=== PATIENT | female | born 1935 | race Caucasian/White ===

== ENCOUNTER 2017-04-15 23:54 | Emergency (ER) | payer OTHER ==
[~2017-04-15] VITALS: Ht 160 cm; Wt 78.0 kg
[2017-04-16 00:06] VITALS: TEMP 36.7; O2SAT 95; Ht 160 cm; Wt 78.0 kg
--- NOTE | 2017-04-16 00:51 | EMERGENCY ROOM VISIT NOTE ---
History Report prepared by Jackelyn: Hollie Llamas Under the Supervision of: Dr. Steve Hare M.D. First contact with patient: 00:41 Chief Complaint: CHEST PAIN Stated Complaint: SHORTNESS OF BREATH Nursing Triage Summary: c/o shortness of breath upon walking up ramp tonight. denies chest pain. reports history of afib. denies shortness of breath or chest pain currently. aaox4 resp even unlabored. speaking full sentences. skin pwd. vitals stable. daughter by bedside. History of Present Illness The patient is a 81 year old female who presents to the Emergency Room with complaints of an episode of shortness of breath occurring just prior to arrival. This episode occurred at the [employer] when walking up stairs. Per patient's daughter, this is more than normal amount of activity the patient has. The patient denies any palpations, nausea or vomiting. She has a history of atrial fibrillation and is on Coumadin and Metoprol. Presently, the patient does not feel short of breath. Source of History: patient Onset: just prior to arrival Position: other (generalized) Quality: other (shortness of breath) Modifying Factors (Worsening): movement Associated Symptoms: + SOB, No nausea, No vomiting Review of Systems See HPI for pertinent positives and negatives. A total of ten systems were reviewed and were otherwise negative. Past Medical & Surgical Medical Problems: (1) Afib Family History No pertinent family history stated. Social History Smoking Status: Never Smoker Smokeless Tobacco Use: No Alcohol Use: none Drug Use: none Current/Historical Medications Scheduled Aspirin (Aspirin Ec), 81 MG PO DAILY Atorvastatin (Lipitor), 40 MG PO DAILY Calcium-Magnesium W/ Vitamin D (Calcium 500), 1,500 MG PO DAILY Cholecalciferol (Vitamin D 1000 Unit), 1,000 INTER.UNIT PO DAILY Cyclosporine (Ophth) (Restasis), 1 DROP OPB BID Docusate Sodium (Colace), 100 MG PO DAILY Furosemide (Lasix), 20 MG PO DAILY Loratadine (Claritin), 5 MG PO DAILY Metoprolol Succ (Toprol Xl) (Toprol-Xl), 50 MG PO QPM Misc Natural Products (Osteo Bi-Flex Joint Shiel), 1 TAB PO DAILY Multiple Vitamins W/ Minerals (Centrum Silver), 1 TAB PO DAILY Omeprazole (Prilosec), 20 MG PO DAILY Primidone (Mysoline), 0.5 TAB PO TID Warfarin Sodium (Coumadin), 1 MG PO 3XWK Warfarin Sodium (Coumadin), 2 MG PO 4XWK Allergies Coded Allergies: Sulfa Antibiotics (Verified Allergy, Severe, muscle stiffness, 04/16/17) Physical Exam Vital Signs Date Time Temp Pulse Resp B/P (MAP) Pulse Ox O2 Delivery O2 Flow Rate FiO2 04/16/17 04:12 54 18 138/78 95 04/16/17 04:09 138/78 04/16/17 04:06 56 17 94 04/16/17 03:54 59 04/16/17 03:36 58 13 95 04/16/17 03:06 58 17 92 04/16/17 02:36 58 17 96 04/16/17 02:31 57 17 155/78 93 04/16/17 02:24 57 17 93 04/16/17 01:54 55 19 93 04/16/17 01:24 57 16 93 04/16/17 00:54 59 20 90 04/16/17 00:24 61 14 92 04/16/17 00:09 66 04/16/17 00:06 95 Room Air 04/16/17 00:06 36.7 58 18 142/75 95 Room Air 04/16/17 00:01 95 Room Air 04/16/17 00:00 142/75 Physical Exam GENERAL: Awake, alert, fatigued-appearing, in no distress HENT: Normocephalic, atraumatic. Oropharynx unremarkable. Dry MM. EYES: Normal conjunctiva. Sclera non-icteric. NECK: Supple. No nuchal rigidity. FROM. No JVD. RESPIRATORY: Clear to auscultation. CARDIAC: Regular rate, normal rhythm. Extremities warm and well perfused. Pulses equal. ABDOMEN: Soft, non-distended. No tenderness to palpation. No rebound or guarding. No masses. RECTAL: Deferred. MUSCULOSKELETAL: Chest examination reveals no tenderness. The back is symmetrical on inspection without obvious abnormality. There is no CVA tenderness to palpation. No joint edema. LOWER EXTREMITIES: Calves are equal size bilaterally and non-tender. Scant lower extremity edema. No discoloration. NEURO: Normal sensorium. No sensory or motor deficits noted. SKIN: No rash or jaundice noted. Medical Decision & Procedures ER Provider Diagnostic Interpretation: Radiology results as stated below per my review and radiologist interpretation: Chest X-ray: mild bronchial thickening otherwise clear lungs Laboratory Results 04/16/17 00:15 Red Blood Count 4.57, Mean Corpuscular Volume 90.4, Mean Corpuscular Hemoglobin 31.1, Mean Corpuscular Hemoglobin Concent 34.4, Mean Platelet Volume 11.3, Neutrophils (%) (Auto) 43.1, Lymphocytes (%) (Auto) 40.2, Monocytes (%) (Auto) 12.6, Eosinophils (%) (Auto) 3.3, Basophils (%) (Auto) 0.7, Neutrophils # (Auto ) 3.62, Lymphocytes # (Auto) 3.38, Monocytes # (Auto) 1.06, Eosinophils # (Auto ) 0.28, Basophils # (Auto) 0.06 04/16/17 00:15 Test 04/16/17 00:15 04/16/17 02:40 White Blood Count 8.41 K/uL (4.8-10.8) Red Blood Count 4.57 M/uL (4.2-5.4) Hemoglobin 14.2 g/dL (12.0-16.0) Hematocrit 41.3 % (37-47) Mean Corpuscular Volume 90.4 fL (80-100) Mean Corpuscular Hemoglobin 31.1 pg (25-34) Mean Corpuscular Hemoglobin Concent 34.4 g/dl (32-36) Platelet Count 234 K/uL (130-400) Mean Platelet Volume 11.3 fL (7.4-10.4) Neutrophils (%) (Auto) 43.1 % Lymphocytes (%) (Auto) 40.2 % Monocytes (%) (Auto) 12.6 % Eosinophils (%) (Auto) 3.3 % Basophils (%) (Auto) 0.7 % Neutrophils # (Auto) 3.62 K/uL (1.4-6.5) Lymphocytes # (Auto) 3.38 K/uL (1.2-3.4) Monocytes # (Auto) 1.06 K/uL (0.11-0.59) Eosinophils # (Auto) 0.28 K/uL (0-0.5) Basophils # (Auto) 0.06 K/uL (0-0.2) RDW Standard Deviation 43.6 fL (36.4-46.3) RDW Coefficient of Variation 13.2 % (11.5-14.5) Immature Granulocyte % (Auto) 0.1 % Immature Granulocyte # (Auto) 0.01 K/uL (0.00-0.02) Prothrombin Time 23.4 SECONDS (9.0-12.0) Prothromb Time International Ratio 2.1 (0.9-1.1) Anion Gap 11.0 mmol/L (3-11) Est Creatinine Clear Calc Drug Dose 30.5 ml/min Estimated GFR () 39.7 Estimated GFR (Non- 34.3 BUN/Creatinine Ratio 19.2 (10-20) Calcium Level 8.6 mg/dl (8.5-10.1) Total Bilirubin 0.4 mg/dl (0.2-1) Direct Bilirubin < 0.1 mg/dl (0-0.2) Aspartate Amino Transf (AST/SGOT) 32 U/L (15-37) Alanine Aminotransferase (ALT/SGPT) 32 U/L (12-78) Alkaline Phosphatase 95 U/L (45-117) Pro-B-Type Natriuretic Peptide 134 pg/ml (0-1800) Total Protein 8.0 gm/dl (6.4-8.2) Albumin 3.5 gm/dl (3.4-5.0) Lipase 220 U/L (73-393) Troponin I < 0.015 ng/ml (0-0.045) Laboratory results reviewed by me Medications Administered Medications (Trade) Dose Ordered Sig/Alex Route Start Time Stop Time Status Last Admin Dose Admin Warfarin Sodium (Coumadin Tab) 2 mg NOW ONCE PO 04/16/17 02:15 04/16/17 02:16 DC 04/16/17 02:32 2 MG Metoprolol Succinate (Toprol Xl Tab) 50 mg NOW STAT PO 04/16/17 02:11 04/16/17 02:14 DC 04/16/17 02:31 50 MG ECG Indication: SOB/dyspnea Rate (beats per minute): 62 Findings: no acute ischemic change, other (normal axis) Comparison ECG Date: REPEAT EKG: sinus bradycardia 56 bpm Change: no significant change ED Course 0043: The patient was evaluated in room C10. A complete history and physical exam was performed. 0211: Metoprolol Succinate 50 mg PO. 0215: Coumadin Tab 2 mg PO. 0357: I reevaluated the patient. Discussed results and discharge instructions: She verbalized understanding and agreement. The patient is ready for discharge. Medical Decision I reviewed the patient's past medical history, medications, and the nursing notes as described above. Differential diagnosis: pneumonia, bronchitis, atrial fibrillation, arrhythmia, CH,F ACS, deconditioning The patient is a 81 y/o woman with a pmhx of afib on coumadin who presents to the ED with sob when walking [place] stairs with family per HPI. On arrival the patient appears fatigued but in NAD. AFVSS. Per family now appears at her baseline. EKG unremarkable in NSR. CXR negative. Labs unremarkable with WBC wnl , Trop negative. BNP wnl. Delta 2 hour trop and repeat EKG unremarkable. Given patient returned to her baseline and unremarkable w/u. Episode most c/w over- exertion as family endorse climbing stairs was beyond the patient's typical activity. Findings and plan for follow-up reviewed with patient and daughter. Agreeable and d/c'd per discharge instructions. Medication Reconcilliation Current Medication List: was personally reviewed by me Blood Pressure Screening Patient's blood pressure: Elevated blood pressure Blood pressure disposition: Referred to PCP Impression Primary Impression: Shortness of breath Scribe Attestation The scribe's documentation has been prepared under my direction and personally reviewed by me in its entirety. I confirm that the note above accurately reflects all work, treatment, procedures, and medical decision making performed by me. Departure Information Dispostion Home / Self-Care Forms HOME CARE DOCUMENTATION FORM, IMPORTANT VISIT INFORMATION Patient Instructions ED Dyspnea Shortness of Breath, My [facility] Additional Instructions Please follow up with your primary care physician in the next 1-3 days for re- evaluation. Your symptoms were most likely due to over exertion. Otherwise, your exam, EKG, chest xray, and lab results did not show signs of an emergent condition at this time. Return to the emergency department for worsening symptoms as described in the accompanying instructions.
[2017-04-16 00:52] LABS: BASO % 0.7 %; BASO ABS # 0.06 K/uL (0-0.2); COMPLETE YES; EOS % 3.3 %; HEMATOCRIT 41.3 % (37-47); IG% 0.1 %; LYMPH % 40.2 %; LYMPH ABS # 3.38 K/uL (1.2-3.4); MEAN CELL VOLUME 90.4 fL (80-100); MEAN CORPUSCULAR HEMOGLOBIN 31.1 pg (25-34); MEAN CORPUSCULAR HGB CONC 34.4 g/dl (32-36); MEAN PLATELET VOLUME 11.3 fL (7.4-10.4); MONO % 12.6 %; NEUT % 43.1 %; PLATELET COUNT 234 K/uL (130-400); RED BLOOD COUNT 4.57 M/uL (4.2-5.4); WHITE BLOOD COUNT 8.41 K/uL (4.8-10.8)
[2017-04-16 00:57] LABS: INR 2.1 (0.9-1.1); PROTHROMBIN TIME (PATIENT) 23.4 SECONDS (9.0-12.0)
[2017-04-16 01:13] LABS: ALKALINE PHOSPHATASE 95 U/L (45-117); ALT/SGPT 32 U/L (12-78); BLOOD UREA NITROGEN 27 mg/dl (7-18); BUN/CREATININE RATIO 19.2 (10-20); CALCIUM 8.6 mg/dl (8.5-10.1); CARBON DIOXIDE 23 mmol/L (21-32); CHLORIDE 109 mmol/L (98-107); CREATININE 1.43 mg/dl (0.60-1.20); GLUCOSE 137 mg/dl (70-99)
[2017-04-16 01:40] LABS: POTASSIUM 3.5 mmol/L (3.5-5.1); SODIUM 143 mmol/L (136-145)
[2017-04-16] MEDS ORDERED: METO50TA7 PO (01:41)
[2017-04-16] MEDS ORDERED: WARF1TAB PO (01:41)
[2017-04-16] MEDS ORDERED: WARF2TAB PO (01:41)
[2017-04-16] MEDS ORDERED: CLR10 PO (01:43)
[2017-04-16] MEDS ORDERED: ATOR-24 PO (01:43)
[2017-04-16] MEDS ORDERED: PRLSR20 PO (01:43)
[2017-04-16] MEDS ORDERED: ASPI81TA28 PO (01:43)
[2017-04-16] MEDS ORDERED: DOCU-94 PO (01:44)
[2017-04-16] MEDS ORDERED: CALC-5 PO (01:44)
[2017-04-16 01:45] LABS: AST/SGOT 32 U/L (15-37)
[2017-04-16] MEDS ORDERED: FRS/40 PO (01:45)
[2017-04-16] MEDS ORDERED: MULTCHW PO (01:45)
[2017-04-16] MEDS ORDERED: CHOL100027 PO (01:46)
[2017-04-16] MEDS ORDERED: MISCTAB30 PO (01:46)
[2017-04-16] MEDS ORDERED: PRIM50TA29 PO (01:49)
[2017-04-16] MEDS ORDERED: CYCL0.052 OPB (01:49)
[2017-04-16] MEDS ORDERED: METOPROLOL SUCC 50MG EXT REL TAB PO STA (02:11)
[2017-04-16] MEDS ORDERED: WARFARIN SOD 1 MG TAB PO ONE (02:15)
[2017-04-16 04:12] VITALS: BP 138/78; PULSE 54; O2SAT 95
--- NOTE | 2017-04-16 07:13 | DIAGNOSTIC IMAGING REPORT ---
CHEST ONE VIEW PORTABLE CLINICAL HISTORY: Atypical chest pain and shortness of breath COMPARISON STUDY: No previous studies for comparison. FINDINGS: The cardiac and mediastinal contours are normal. There is no evidence of focal pulmonary consolidation. There is no evidence of failure. No pleural effusions are visualized.[ A linear opacity at left lung base is felt to represent subsegmental atelectatic change. IMPRESSION: No active disease in the chest. Electronically signed by: Mitesh Hicks M.D. 04/16/2017 7:11 AM Dictated Date/Time: 04/16/2017 7:11 AM
== END 2017-04-16 04:14 | disposition home or self-care (01) ==
LOC: C.EDC 23:58
DX: R06.02 Shortness of breath (principal); I48.91 Unspecified atrial fibrillation; Z79.01 Long term (current) use of anticoagulants; Z79.82 Long term (current) use of aspirin; Z79.899 Other long term (current) drug therapy